=== PATIENT | female | born 1965 | race Caucasian/White ===

== ENCOUNTER 2016-09-10 07:31 | Emergency (ER) ==
[2016-09-10 08:03] LABS: #Basophils 0.1 thou/uL (0.0-0.2); #Eosinphils 0.1 thou/uL (0.0-0.7); #Lymphocytes 2.8 thou/uL (1.20-3.40); #Monocytes 0.7 thou/uL (0.11-0.59); #Neutrophils 5.7 thou/uL (1.40-6.50); %Basophils 0.9 % (0.0-1.0); %Eosinophils 1.1 % (0.0-10.0); %Lymphocytes 29.6 % (21.0-51.0); %Monocytes 7.6 % (0.0-10.0); %Neutrophils 60.8 % (42.0-75.0); Hemoglobin 15.9 g/dL (12.0-16.0); Mean Corpuscular HGB CONC 32.9 g/dL (32.0-36.0); Mean Corpuscular Hemoglobin 28.9 pg (27.0-31.0); Mean Corpuscular Volume 87.8 fl (81.0-99.0); Mean Platelet Volume 6.8 fL (7.4-10.4); Platelet Count 243 thou/uL (130-400); RBC Distribution Width 13.2 % (11.5-14.5); Red Blood Cell (RBC) Count 5.52 mill/uL (4.20-5.40); White Blood Cell (WBC) Count 9.4 thou/uL (4.8-10.8)
[2016-09-10 08:07] LABS: Bilirubin Negative (Negative); Blood, Urine Negative (Negative); Clarity Slightly Cloudy (Clear); Glucose, Urine (Dipstick) Negative (Negative); Leukocyte Negative (Negative); Nitrite Negative (Negative); Protein, Urine (Dipstick) Negative (Neg-Trace); Urobilinogen 0.2 mg/dL (0.2-1.0)
[2016-09-10 08:09] LABS: Pregnancy Test - Urine (BHCG) NEGATIVE (NEGATIVE); Pregu Control Bar Appear? YES (CONTROL BAR)
[2016-09-10 08:14] LABS: Amphetamine Not Detected (NotDetected); Barbiturates Screen Not Detected (NotDetected); Benzodiazepine Screen Not Detected (NotDetected); Cocaine Metabolite Screen Not Detected (NotDetected); Medtox Control Line Valid? VALID (VALID); Methadone Not Detected (NotDetected); Methamphetamine Not Detected (NotDetected); Opiate Screen Not Detected (NotDetected); Oxycodone Screen Not Detected (NotDetected); Phencyclidine (PCP) Not Detected (NotDetected); THC/Cannabinoid Screen Not Detected (NotDetected); Tricyclic Screen Not Detected (NotDetected)
[2016-09-10 08:17] LABS: Acetaminophen Less than 3.0 mcg/mL (10.0-30.0); Alcohol Less than 10 mg/dL (Less than 10); Salicylate Less than 5.0 mg/dL (15.0-30.0)
[2016-09-10 08:19] LABS: ALT (SGPT) 13 U/L (0-55); AST (SGOT) 16 U/L (5-34); Albumin 4.2 g/dL (3.5-5.0); Alcohol Less than 10 mg/dL (Less than 10); Alkaline Phosphatase 72 U/L (40-150); Anion Gap 13 mmol/L (10-20); BUN (Urea Nitrogen) 12 mg/dL (7.0-18.7); Bilirubin, Total 0.4 mg/dL (0.2-1.2); CK (CPK) 135 U/L (29-168); Calc. Creatinine Clearance 0 mL/min (70-130); Calcium 9.1 mg/dL (7.8-10.44); Carbon Dioxide 25 mmol/L (22-29); Chloride 105 mmol/L (98-107); Estimated GFR-MDRD 70; Globulin 2.9 g/dL (2.4-3.5); Glucose 113 mg/dL (70-105); Potassium 4.2 mmol/L (3.5-5.1); Protein, Total 7.1 g/dL (6.0-8.3); Sodium 139 mmol/L (136-145)
[2016-09-10] MEDS ORDERED: Lorazepam 0.5 MG TAB ONE (08:32)
[2016-09-10] MEDS ORDERED: Ibuprofen 800 MG TAB ONE (08:33)
[2016-09-10] MEDS ORDERED: Lisinopril 5 MG TAB ONE (09:52)
== END 2016-09-10 11:38 ==
LOC: BURERS 07:31
DX: F43.0 Acute stress reaction (principal); F32.9 Major depressive disorder, single episode, unspecified; I10 Essential (primary) hypertension; J45.909 Unspecified asthma, uncomplicated; F41.9 Anxiety disorder, unspecified; F20.9 Schizophrenia, unspecified; F17.210 Nicotine dependence, cigarettes, uncomplicated; Z79.2 Long term (current) use of antibiotics; Z79.899 Other long term (current) drug therapy
CPT/HCPCS: 36415; 80053; 80306; 80307; 81003; 81025; 82550; 85025; 99284

== ENCOUNTER 2016-09-18 18:57 | Emergency (ER) | payer OTHER ==
[2016-09-18] MEDS ORDERED: Ketorolac Tromethamine 60 MG/2 ML VIAL ONE (22:09)
[2016-09-18] MEDS ORDERED: cefTRIAXone\\ROCEPHIN 1 GM VIAL ONE (22:09)
[2016-09-18] MEDS ORDERED: Amoxicillin/Potassium Clav 875 MG TAB ONE (22:11)
[2016-09-18] MEDS ORDERED: Lidocaine 1% 20 ML MDV ONE (22:15)
== END 2016-09-18 22:48 | disposition home or self-care (01) ==
LOC: BURERS 18:57
DX: K04.7 Periapical abscess without sinus (principal); J45.909 Unspecified asthma, uncomplicated; I10 Essential (primary) hypertension; F41.9 Anxiety disorder, unspecified; F32.9 Major depressive disorder, single episode, unspecified; F20.9 Schizophrenia, unspecified; Z79.899 Other long term (current) drug therapy
CPT/HCPCS: 96372; J0696; J1885; J2001

== ENCOUNTER 2016-10-04 05:56 | Emergency (ER) | payer OTHER ==
[2016-10-04] MEDS ORDERED: ALPRAZolam 0.5 MG TAB ONE (06:03)
[2016-10-04 06:26] LABS: Bilirubin Negative (Negative); Blood, Urine Negative (Negative); Clarity Clear (Clear); Glucose, Urine (Dipstick) Negative (Negative); Leukocyte Negative (Negative); Nitrite Negative (Negative); Protein, Urine (Dipstick) Negative (Neg-Trace); Specific Gravity, Urine 1.015 (1.005-1.030); Urobilinogen 0.2 mg/dL (0.2-1.0)
== END 2016-10-04 07:41 | disposition home or self-care (01) ==
LOC: BURERS 05:56
DX: S00.81XA Abrasion of other part of head, initial encounter (principal); S40.812A Abrasion of left upper arm, initial encounter; S40.811A Abrasion of right upper arm, initial encounter; S00.01XA Abrasion of scalp, initial encounter; S80.812A Abrasion, left lower leg, initial encounter; S80.811A Abrasion, right lower leg, initial encounter; F41.9 Anxiety disorder, unspecified; E11.9 Type 2 diabetes mellitus without complications; I10 Essential (primary) hypertension; F31.9 Bipolar disorder, unspecified; F17.210 Nicotine dependence, cigarettes, uncomplicated; Z79.899 Other long term (current) drug therapy; Y04.2XXA Assault by strike against or bumped into by another person, initial encounter
CPT/HCPCS: 81003; 99283

== ENCOUNTER 2016-12-25 04:29 | Emergency (ER) | payer OTHER, SELFPAY ==
[2016-12-25] MEDS ORDERED: Ketorolac Tromethamine 30 MG/ML VIAL ONE (04:59)
[2016-12-25] MEDS ORDERED: Cyclobenzaprine 10 MG TAB ONE (04:59)
== END 2016-12-25 05:25 | disposition home or self-care (01) ==
LOC: BURERS 04:29
DX: M54.5 Low back pain (principal); R21 Rash and other nonspecific skin eruption; E11.9 Type 2 diabetes mellitus without complications; I10 Essential (primary) hypertension; F41.9 Anxiety disorder, unspecified; F31.9 Bipolar disorder, unspecified; F20.9 Schizophrenia, unspecified; F17.210 Nicotine dependence, cigarettes, uncomplicated; Z79.899 Other long term (current) drug therapy
CPT/HCPCS: 96372; J1885

== ENCOUNTER 2016-12-31 21:04 | Emergency (ER) | payer OTHER ==
[2016-12-31] MEDS ORDERED: Ibuprofen 800 MG TAB ONE (22:25)
[2016-12-31] MEDS ORDERED: cefTRIAXone\\ROCEPHIN 2 GM VIAL ONE (22:25)
[2016-12-31] MEDS ORDERED: Sodium Chloride 0.9% 100 ML ONE (22:25)
[2016-12-31 22:36] LABS: #Basophils 0.1 thou/uL (0.0-0.2); #Lymphocytes 1.8 thou/uL (1.20-3.40); #Neutrophils 8.8 thou/uL (1.40-6.50); %Basophils 1.1 % (0.0-1.0); %Eosinophils 0.2 % (0.0-10.0); %Lymphocytes 15.5 % (21.0-51.0); %Monocytes 8.6 % (0.0-10.0); %Neutrophils 74.7 % (42.0-75.0); Hemoglobin 11.1 g/dL (12.0-16.0); Mean Corpuscular Volume 88.2 fl (81.0-99.0); Platelet Count 138 thou/uL (130-400); RBC Distribution Width 12.8 % (11.5-14.5); Red Blood Cell (RBC) Count 3.71 mill/uL (4.20-5.40); White Blood Cell (WBC) Count 11.8 thou/uL (4.8-10.8)
[2016-12-31 22:48] LABS: ALT (SGPT) 7 U/L (8-55); AST (SGOT) 11 U/L (5-34); Albumin 2.8 g/dL (3.5-5.0); Alkaline Phosphatase 30 U/L (40-150); Anion Gap 10 mmol/L (10-20); BUN (Urea Nitrogen) 7 mg/dL (7.0-18.7); Bilirubin, Total 0.3 mg/dL (0.2-1.2); Calc. Creatinine Clearance 0 mL/min (70-130); Calcium 6.7 mg/dL (7.8-10.44); Carbon Dioxide 20 mmol/L (22-29); Chloride 108 mmol/L (98-107); Estimated GFR-MDRD Greater than 90; Globulin 2.3 g/dL (2.4-3.5); Glucose 82 mg/dL (70-105); Potassium 3.2 mmol/L (3.5-5.1); Protein, Total 5.1 g/dL (6.0-8.3); Sodium 135 mmol/L (136-145)
[2016-12-31] MEDS ORDERED: Albuterol Sulfate 1.25 MG/3 ML NEB ONE (22:48)
--- NOTE | 2016-12-31 22:53 | RAD ---
PORTABLE CHEST 12/31/16 The cardiac size is upper normal but still potentially within normal limits given an AP projection a nd the body habitus plus positioning. There is no vascular congestion, edema. Or pleural effusion. T he lungs are currently clear. The trachea is midline. IMPRESSION: Heart size is upper normal. No acute findings otherwise. POS: HOME
[2016-12-31 22:55] LABS: Bilirubin Negative (Negative); Blood, Urine Negative (Negative); Clarity Clear (Clear); Glucose, Urine (Dipstick) Negative (Negative); Leukocyte Negative (Negative); Nitrite Negative (Negative); Protein, Urine (Dipstick) Negative (Neg-Trace); Specific Gravity, Urine 1.015 (1.005-1.030); pH, Urine 7.5 (5.0-9.0)
[2016-12-31] MEDS ORDERED: methylPREDNISolone Sod Succ/PF 125 MG/2 ML VIAL ONE (23:18)
== END 2016-12-31 23:47 | disposition short-term general hospital (02) ==
LOC: BURERS 21:04
DX: J44.1 Chronic obstructive pulmonary disease with (acute) exacerbation (principal); J06.9 Acute upper respiratory infection, unspecified; E11.9 Type 2 diabetes mellitus without complications; I10 Essential (primary) hypertension; F41.9 Anxiety disorder, unspecified; F31.9 Bipolar disorder, unspecified; F20.9 Schizophrenia, unspecified; F17.210 Nicotine dependence, cigarettes, uncomplicated; Z79.899 Other long term (current) drug therapy
CPT/HCPCS: 36415; 51701; 71010; 80053; 81003; 83605; 85025; 87040; 87086; 93005; 94640; 96365; 96375; A4353; J0696; J2930; J7050; J7620

== ENCOUNTER 2018-09-06 13:36 | Emergency (ER) | payer OTHER ==
[2018-09-06] MEDS ORDERED: Ibuprofen 800 MG TAB ONE (13:54)
[2018-09-06] MEDS ORDERED: Cephalexin 500 MG CAP ONE (13:54)
== END 2018-09-06 14:01 | disposition home or self-care (01) ==
LOC: BURERS 13:36
DX: L01.00 Impetigo, unspecified (principal); E11.9 Type 2 diabetes mellitus without complications; I10 Essential (primary) hypertension; J44.9 Chronic obstructive pulmonary disease, unspecified; F41.9 Anxiety disorder, unspecified; F31.9 Bipolar disorder, unspecified; F20.9 Schizophrenia, unspecified; F17.210 Nicotine dependence, cigarettes, uncomplicated
CPT/HCPCS: 99283

== ENCOUNTER 2018-10-11 19:01 | Emergency (ER) | payer OTHER ==
[2018-10-11] MEDS ORDERED: Cephalexin 500 MG CAP ONE ×2 (19:10→19:11)
[2018-10-11] MEDS ORDERED: traMADol HCl 50 MG TAB ONE (19:11)
== END 2018-10-11 19:30 | disposition home or self-care (01) ==
LOC: BURERS 19:01
DX: L01.00 Impetigo, unspecified (principal); I10 Essential (primary) hypertension; E11.9 Type 2 diabetes mellitus without complications; J44.9 Chronic obstructive pulmonary disease, unspecified; F41.9 Anxiety disorder, unspecified; F31.9 Bipolar disorder, unspecified; F20.9 Schizophrenia, unspecified; F17.210 Nicotine dependence, cigarettes, uncomplicated
CPT/HCPCS: 99283

== ENCOUNTER 2018-12-09 13:38 | Emergency (ER) | payer OTHER ==
[2018-12-09] MEDS ORDERED: Sulfameth/Trimethoprim DS 800-160mg TAB ONE (14:41)
[2018-12-09] MEDS ORDERED: Acetaminophen 325 MG TAB ONE (14:41)
[2018-12-09] MEDS ORDERED: traMADol HCl 50 MG TAB ONE (14:41)
[2018-12-09 14:48] LABS: #Basophils 0.1 thou/uL (0.0-0.2); #Eosinphils 0.3 thou/uL (0.0-0.7); #Lymphocytes 2.7 thou/uL (1.20-3.40); #Monocytes 0.6 thou/uL (0.11-0.59); %Basophils 1.4 % (0.0-1.0); %Eosinophils 2.8 % (0.0-10.0); %Lymphocytes 28.1 % (21.0-51.0); %Monocytes 6.4 % (0.0-10.0); %Neutrophils 61.3 % (42.0-75.0); Mean Corpuscular HGB CONC 32.6 g/dL (32.0-36.0); Mean Corpuscular Hemoglobin 28.5 pg (27.0-31.0); Mean Corpuscular Volume 87.5 fL (78.0-98.0); Mean Platelet Volume 6.6 fL (7.4-10.4); Platelet Count 252 thou/uL (130-400); Red Blood Cell (RBC) Count 4.54 mill/uL (4.20-5.40); White Blood Cell (WBC) Count 9.7 thou/uL (4.8-10.8)
--- NOTE | 2018-12-09 17:48 | RAD ---
PA CHEST AND RIGHT RIBS: 7 Comparison is made with the 09/16/[address] [facility]. The heart is normal in size. The mediastinum shows no widening or shift. Small calcified node is seen in the aorticopulmonary window region. This is of no concern. The lungs are clear. There is no conge stive change or pleural effusion. There is no sign of pneumonia or pneumothorax. Regarding the right ribs, they are generally unremarkable. There was a little cortical irregularity i n the right 7th rib posteriorly a few centimeters to the right of the spine. I feel the odds of this being a recent fracture are low and would tend to disregard it unless the patient had tenderness in t his exact location on physical exam. IMPRESSION: No acute findings. See comments above regarding the right 7th rib posteriorly. Code T POS: HOME
== END 2018-12-09 14:57 | disposition home or self-care (01) ==
LOC: BURERS 13:38
DX: L08.9 Local infection of the skin and subcutaneous tissue, unspecified (principal); F31.9 Bipolar disorder, unspecified; I10 Essential (primary) hypertension; E11.9 Type 2 diabetes mellitus without complications; J44.9 Chronic obstructive pulmonary disease, unspecified; F20.9 Schizophrenia, unspecified
CPT/HCPCS: 85025

== ENCOUNTER 2019-01-26 22:55 | Emergency (ER) | payer OTHER ==
[2019-01-26 23:18] LABS: Bilirubin Negative (Negative); Blood, Urine Negative (Negative); Clarity Clear (Clear); Glucose, Urine (Dipstick) Negative (Negative); Leukocyte Negative (Negative); Nitrite Negative (Negative); Protein, Urine (Dipstick) Negative (Neg-Trace); Urobilinogen 0.2 mg/dL (Less than 2)
[2019-01-26] MEDS ORDERED: traMADol HCl 50 MG TAB ONE (23:18)
[2019-01-26] MEDS ORDERED: Ketorolac Tromethamine 30 MG/ML VIAL ONE (23:18)
[2019-01-26 23:50] LABS: Hemoglobin 13.1 g/dL (12.0-16.0); Mean Corpuscular HGB CONC 32.4 g/dL (32.0-36.0); Mean Corpuscular Hemoglobin 28.3 pg (27.0-31.0); Mean Corpuscular Volume 87.4 fL (78.0-98.0); Mean Platelet Volume 6.5 fL (7.4-10.4); Platelet Count 238 thou/uL (130-400); RBC Distribution Width 13.2 % (11.5-14.5); Red Blood Cell (RBC) Count 4.62 mill/uL (4.20-5.40); White Blood Cell (WBC) Count 8.2 thou/uL (4.8-10.8)
[2019-01-26 23:57] LABS: ALT (SGPT) 9 U/L (8-55); AST (SGOT) 16 U/L (5-34); Alkaline Phosphatase 46 U/L (40-150); Anion Gap 13 mmol/L (10-20); BUN (Urea Nitrogen) 16 mg/dL (9.8-20.1); Bilirubin, Total 0.2 mg/dL (0.2-1.2); Calc. Creatinine Clearance 0 mL/min (70-130); Calcium 9.4 mg/dL (7.8-10.44); Carbon Dioxide 26 mmol/L (22-29); Chloride 104 mmol/L (98-107); Estimated GFR-MDRD 57; Globulin 2.8 g/dL (2.4-3.5); Glucose 98 mg/dL (70-105); Lipase 36 U/L (8-78); Potassium 4.5 mmol/L (3.5-5.1); Protein, Total 6.8 g/dL (6.0-8.3); Sodium 138 mmol/L (136-145)
[2019-01-27 00:03] LABS: Band 1 % (5-11); Eosinophils 1 % (0-10); Lymphocytes 47 % (21-51); MDiff Complete? YES; Monocytes 5 % (0-10); Neutrophil 45 % (42-75); Platelet Morphology Comment Appears Adequate; RBC Morphology Normal; Reactive Lymphocytes 1 % (0-10)
== END 2019-01-27 00:14 | disposition home or self-care (01) ==
LOC: BURERS 22:55
DX: G89.29 Other chronic pain (principal); R10.10 Upper abdominal pain, unspecified; M54.9 Dorsalgia, unspecified; E11.9 Type 2 diabetes mellitus without complications; I10 Essential (primary) hypertension; J44.9 Chronic obstructive pulmonary disease, unspecified; F41.9 Anxiety disorder, unspecified; F31.9 Bipolar disorder, unspecified; F20.9 Schizophrenia, unspecified; F17.210 Nicotine dependence, cigarettes, uncomplicated; Z79.899 Other long term (current) drug therapy
CPT/HCPCS: 80053; 81003; 83690; 85025; 96374; J1885

== ENCOUNTER 2019-05-16 15:34 | Emergency (ER) | payer OTHER ==
[2019-05-16] MEDS ORDERED: Ibuprofen 800 MG TAB ONE (17:47)
--- NOTE | 2019-05-16 17:59 | RAD ---
CHEST TWO VIEWS: 05/16/19 Comparison is made with a 12/09/18 study. The heart is normal in size and the lungs are clear. No acute infiltrate or effusion was seen. The me diastinum was unremarkable. IMPRESSION: No acute findings. POS: HOME
[2019-05-16] MEDS ORDERED: Oseltamivir 75 MG CAP ONE (18:24)
== END 2019-05-16 18:37 | disposition home or self-care (01) ==
LOC: BURERS 15:34
DX: J11.1 Influenza due to unidentified influenza virus with other respiratory manifestations (principal); Z71.6 Tobacco abuse counseling; E11.9 Type 2 diabetes mellitus without complications; I10 Essential (primary) hypertension; J44.9 Chronic obstructive pulmonary disease, unspecified; F41.9 Anxiety disorder, unspecified; F31.9 Bipolar disorder, unspecified; F20.9 Schizophrenia, unspecified; F17.210 Nicotine dependence, cigarettes, uncomplicated
CPT/HCPCS: 71046; 87804; J7620

== ENCOUNTER 2019-06-05 05:33 | Emergency (ER) | payer OTHER ==
[2019-06-05 05:50] LABS: #Basophils 0.1 thou/uL (0.0-0.2); #Eosinphils 0.1 thou/uL (0.0-0.7); #Lymphocytes 2.3 thou/uL (1.20-3.40); #Monocytes 0.8 thou/uL (0.11-0.59); #Neutrophils 5.3 thou/uL (1.40-6.50); %Basophils 1.5 % (0.0-1.0); %Eosinophils 1.2 % (0.0-10.0); %Lymphocytes 26.6 % (21.0-51.0); %Monocytes 9.3 % (0.0-10.0); %Neutrophils 61.5 % (42.0-75.0); Hemoglobin 12.8 g/dL (12.0-16.0); Mean Corpuscular HGB CONC 31.7 g/dL (32.0-36.0); Mean Corpuscular Hemoglobin 27.8 pg (27.0-31.0); Mean Corpuscular Volume 87.7 fL (78.0-98.0); Mean Platelet Volume 7.4 fL (7.4-10.4); Platelet Count 263 thou/uL (130-400); RBC Distribution Width 13.3 % (11.5-14.5); Red Blood Cell (RBC) Count 4.61 mill/uL (4.20-5.40); White Blood Cell (WBC) Count 8.6 thou/uL (4.8-10.8)
[2019-06-05 05:52] LABS: MDiff Complete? YES; Manual Diff?? NO
[2019-06-05] MEDS ORDERED: Ketorolac Tromethamine 30 MG/ML VIAL ONE (05:59)
[2019-06-05 06:00] LABS: Bilirubin Negative (Negative); Blood, Urine Negative (Negative); Clarity Clear (Clear); Glucose, Urine (Dipstick) Negative (Negative); Leukocyte Negative (Negative); Nitrite Negative (Negative); Protein, Urine (Dipstick) Negative (Neg-Trace)
[2019-06-05 06:03] LABS: ALT (SGPT) 15 U/L (8-55); AST (SGOT) 14 U/L (5-34); Albumin 3.7 g/dL (3.5-5.0); Alcohol Less than 10 mg/dL (Less than 10); Alkaline Phosphatase 44 U/L (40-110); Anion Gap 12 mmol/L (10-20); BUN (Urea Nitrogen) 10 mg/dL (9.8-20.1); Bilirubin, Total 0.2 mg/dL (0.2-1.2); Calc. Creatinine Clearance 0 mL/min (70-130); Calcium 8.9 mg/dL (7.8-10.44); Carbon Dioxide 29 mmol/L (22-29); Chloride 97 mmol/L (98-107); Estimated GFR-MDRD 83; Glucose 100 mg/dL (70-105); Lipase 30 U/L (8-78); Potassium 4.3 mmol/L (3.5-5.1); Protein, Total 6.7 g/dL (6.0-8.3); Sodium 134 mmol/L (136-145)
[2019-06-05] MEDS ORDERED: Iopamidol 370 76% 100 ML VIAL ONE (09:51)
--- NOTE | 2019-06-05 17:39 | CT ---
CT ABDOMEN AND PELVIS WITH CONTRAST: 06/05/[address] of the abdomen and pelvis was performed for evaluation of abdominal pain, mainly left sided . The lung bases are clear. The liver, spleen and pancreas were unremarkable in appearance. A large gal lstone is present in the gallbladder and is visible on an older CT scan dated 05/03/18. Additionally, there is a 1.5 cm lucency in the left kidney that appears to be a cyst. It was present before and has changed little. There is no sign of solid renal mass or hydronephrosis. The bowel shows no dilation , wall thickening, or inflammatory changes around it. CT of the pelvis showed no pelvic masses, fluid collections, or inflammatory changes. There is some m ild uniform thickening of the urinary bladder wall. This could be nearly because it is not completely distended. Alternatively mild cystitis might be entertained with the appropriate symptoms. Multilevel degenerative change is present throughout the spine which is quite severe with multilevel spinal stenosis. There is a severe anterior compression of the T11 vertebral body which is longstandi ng and was present on the prior scan. There is also a mild compression of the L1 vertebral body. IMPRESSION: 1. Large gallstone, longstanding. No signs of acute abdominal change to explain the patient's pa in. 2. 1.5 cm lucency in the left kidney, unchanged from 2018. Statistically, most likely a cyst. 3. Longstanding severe compression fracture of T11. Mild compression fracture of L1. 4. Multilevel degenerative changes of the spine with multilevel spinal stenosis. 5. Equivocal mild wall thickening in the urinary bladder, which may or may not be significant. POS: HOME
== END 2019-06-05 07:04 | disposition home or self-care (01) ==
LOC: BURERS 05:33
DX: R10.32 Left lower quadrant pain (principal); E11.9 Type 2 diabetes mellitus without complications; I10 Essential (primary) hypertension; J44.9 Chronic obstructive pulmonary disease, unspecified; F41.9 Anxiety disorder, unspecified; F20.9 Schizophrenia, unspecified; F31.9 Bipolar disorder, unspecified; F17.210 Nicotine dependence, cigarettes, uncomplicated; Z79.899 Other long term (current) drug therapy; Z79.51 Long term (current) use of inhaled steroids
CPT/HCPCS: 74177; 80053; 80307; 81003; 83690; 85025; 96361; 96374; J1885; Q9967

== ENCOUNTER 2019-07-03 23:02 | Emergency (ER) | payer OTHER ==
[2019-07-03] MEDS ORDERED: HYDROcodone/Acetaminophen 10/325 mg Tablet ONE (23:18)
[2019-07-03] MEDS ORDERED: Ibuprofen 800 MG TAB ONE (23:19)
[2019-07-03] MEDS ORDERED: Clindamycin 150 MG CAP ONE (23:19)
[2019-07-03] MEDS ORDERED: Ondansetron ODT 4 MG TAB ONE (23:19)
== END 2019-07-03 23:20 | disposition home or self-care (01) ==
LOC: BURERS 23:02
DX: L02.31 Cutaneous abscess of buttock (principal); L03.317 Cellulitis of buttock; L03.311 Cellulitis of abdominal wall; E11.9 Type 2 diabetes mellitus without complications; I10 Essential (primary) hypertension; J44.9 Chronic obstructive pulmonary disease, unspecified; F41.9 Anxiety disorder, unspecified; F31.9 Bipolar disorder, unspecified; F20.9 Schizophrenia, unspecified; F17.210 Nicotine dependence, cigarettes, uncomplicated
CPT/HCPCS: 99283; Q0162

== ENCOUNTER 2019-09-25 18:09 | Emergency (ER) | payer OTHER ==
[2019-09-25 19:04] LABS: #Basophils 0.1 thou/uL (0.0-0.2); #Eosinphils 0.1 thou/uL (0.0-0.7); #Lymphocytes 3.3 thou/uL (1.20-3.40); #Monocytes 0.8 thou/uL (0.11-0.59); %Basophils 1.4 % (0.0-1.0); %Eosinophils 1.4 % (0.0-10.0); %Lymphocytes 34.9 % (21.0-51.0); %Monocytes 8.4 % (0.0-10.0); %Neutrophils 53.9 % (42.0-75.0); Hemoglobin 13.5 g/dL (12.0-16.0); Mean Corpuscular HGB CONC 32.5 g/dL (32.0-36.0); Mean Corpuscular Hemoglobin 27.9 pg (27.0-31.0); Platelet Count 256 thou/uL (130-400); RBC Distribution Width 13.9 % (11.5-14.5); Red Blood Cell (RBC) Count 4.82 mill/uL (4.20-5.40); White Blood Cell (WBC) Count 9.3 thou/uL (4.8-10.8)
[2019-09-25] MEDS ORDERED: cefTRIAXone\\ROCEPHIN 1 GM VIAL ONE (19:10)
[2019-09-25 19:12] LABS: ALT (SGPT) 7 U/L (8-55); AST (SGOT) 11 U/L (5-34); Albumin 3.8 g/dL (3.5-5.0); Alkaline Phosphatase 60 U/L (40-110); Anion Gap 15 mmol/L (10-20); BUN (Urea Nitrogen) 24 mg/dL (9.8-20.1); Bilirubin, Total 0.2 mg/dL (0.2-1.2); Calc. Creatinine Clearance 0 mL/min (70-130); Calcium 8.7 mg/dL (7.8-10.44); Carbon Dioxide 24 mmol/L (22-29); Chloride 101 mmol/L (98-107); Estimated GFR-MDRD 49; Globulin 2.9 g/dL (2.4-3.5); Glucose 115 mg/dL (70-105); Potassium 4.1 mmol/L (3.5-5.1); Protein, Total 6.7 g/dL (6.0-8.3); Sodium 136 mmol/L (136-145)
--- NOTE | 2019-09-25 19:25 | RAD ---
ONE VIEW CHEST: 09/25/19 HISTORY: Hypotension and fever. COMPARISON: 09/16/18. FINDINGS: The cardiac silhouette and pulmonary vasculature are within normal limits. The lungs remain clear. Ca lcified granuloma again overlies the left suprahilar location. There has been no interval change from the prior exam. IMPRESSION: No acute cardiopulmonary process. POS: [facility]
[2019-09-25] MEDS ORDERED: Lidocaine 1% PF 5 ML VIAL ONE (19:42)
[2019-09-25 19:52] LABS: Bilirubin Negative (Negative); Blood, Urine Negative (Negative); Clarity Cloudy (Clear); Glucose, Urine (Dipstick) Negative (Negative); Leukocyte Small (Negative); Nitrite Positive (Negative); Protein, Urine (Dipstick) Negative (Neg-Trace); Urobilinogen 0.2 mg/dL (Less than 2)
[2019-09-25 19:56] LABS: RBC/HPF 0-3 HPF (0-3)
[2019-09-25 19:57] LABS: Bacteria/HPF 3+ HPF (None Seen); Squamous Epithelial 0-3 HPF (0-3)
[2019-09-26 10:11] LABS: SARS-CoV-2 MS2 Positive; SARS-CoV-2 N Gene Negative; SARS-CoV-2 S Gene Negative; SARS-CoV-2 orf1ab Negative
== END 2019-09-25 21:15 | disposition short-term general hospital (02) ==
LOC: BURERS 18:09
DX: N10 Acute pyelonephritis (principal); J44.1 Chronic obstructive pulmonary disease with (acute) exacerbation; E11.9 Type 2 diabetes mellitus without complications; I10 Essential (primary) hypertension; F31.9 Bipolar disorder, unspecified; F41.9 Anxiety disorder, unspecified; F20.9 Schizophrenia, unspecified; F17.210 Nicotine dependence, cigarettes, uncomplicated; Z79.899 Other long term (current) drug therapy; Z20.828 Contact with and (suspected) exposure to other viral communicable diseases
CPT/HCPCS: 10060; 51701; 71045; 80053; 81003; 81015; 83605; 85025; 86140; 87040; 87633; 87635; 87798; 87804; 93005; 94760; 96361; 96374; J0696; J2001; U0002

== ENCOUNTER 2019-09-30 00:10 | Emergency (ER) | payer OTHER ==
[2019-09-30] MEDS ORDERED: cefTRIAXone\\ROCEPHIN 1 GM VIAL ONE (00:27)
[2019-09-30] MEDS ORDERED: Azithromycin 250 MG TAB ONE ×2 (00:27→00:37)
== END 2019-09-30 00:30 | disposition home or self-care (01) ==
LOC: BURERS 00:10
DX: L02.211 Cutaneous abscess of abdominal wall (principal); N39.0 Urinary tract infection, site not specified; E11.9 Type 2 diabetes mellitus without complications; I10 Essential (primary) hypertension; J44.9 Chronic obstructive pulmonary disease, unspecified; F31.9 Bipolar disorder, unspecified; F41.9 Anxiety disorder, unspecified; F20.9 Schizophrenia, unspecified; F17.210 Nicotine dependence, cigarettes, uncomplicated; Z79.899 Other long term (current) drug therapy; Z91.14 Patient's other noncompliance with medication regimen
CPT/HCPCS: 96372; 99281; J0696

== ENCOUNTER 2019-10-16 10:56 | Emergency (ER) | payer OTHER ==
[2019-10-16 11:50] LABS: #Basophils 0.1 thou/uL (0.0-0.2); #Eosinphils 0.1 thou/uL (0.0-0.7); #Lymphocytes 2.7 thou/uL (1.20-3.40); #Monocytes 0.4 thou/uL (0.11-0.59); #Neutrophils 4.9 thou/uL (1.40-6.50); %Basophils 1.4 % (0.0-1.0); %Eosinophils 1.5 % (0.0-10.0); %Lymphocytes 32.5 % (21.0-51.0); %Monocytes 5.3 % (0.0-10.0); %Neutrophils 59.4 % (42.0-75.0); Hemoglobin 12.8 g/dL (12.0-16.0); Mean Corpuscular HGB CONC 31.7 g/dL (32.0-36.0); Mean Corpuscular Hemoglobin 27.6 pg (27.0-31.0); Mean Corpuscular Volume 87.2 fL (78.0-98.0); Mean Platelet Volume 7.4 fL (7.4-10.4); Platelet Count 275 thou/uL (130-400); RBC Distribution Width 14.2 % (11.5-14.5); Red Blood Cell (RBC) Count 4.62 mill/uL (4.20-5.40); White Blood Cell (WBC) Count 8.3 thou/uL (4.8-10.8)
[2019-10-16 12:01] LABS: ALT (SGPT) Less than 7 U/L (8-55); AST (SGOT) 13 U/L (5-34); Albumin 4.1 g/dL (3.5-5.0); Alkaline Phosphatase 55 U/L (40-110); Anion Gap 15 mmol/L (10-20); BUN (Urea Nitrogen) 16 mg/dL (9.8-20.1); Bilirubin, Total 0.3 mg/dL (0.2-1.2); Calc. Creatinine Clearance 0 mL/min (70-130); Carbon Dioxide 24 mmol/L (22-29); Chloride 95 mmol/L (98-107); Estimated GFR-MDRD 72; Globulin 2.9 g/dL (2.4-3.5); Glucose 130 mg/dL (70-105); Lipase 39 U/L (8-78); Potassium 4.3 mmol/L (3.5-5.1); Sodium 130 mmol/L (136-145)
[2019-10-16] MEDS ORDERED: Escitalopram Oxalate 20 mg Tablet PO SCH (12:30)
[2019-10-16] MEDS ORDERED: Gabapentin 300 MG CAP PO SCH (12:30)
--- NOTE | 2019-10-16 14:00 | RAD ---
PORTABLE CHEST: 10/16/19 An AP portable film at 1204 is compared with a 09/25/19 study. The heart is normal in size and the lungs are clear. No infiltrate or effusion was seen. There is no vascular congestion or edema. The mediastinum is unremarkable. IMPRESSION: No acute thoracic findings. POS: HOME
== END 2019-10-16 13:35 | disposition home or self-care (01) ==
LOC: BURERS 10:56
DX: R07.89 Other chest pain (principal); G89.29 Other chronic pain; M54.9 Dorsalgia, unspecified; F42.4 Excoriation (skin-picking) disorder; J45.909 Unspecified asthma, uncomplicated; I10 Essential (primary) hypertension; F31.9 Bipolar disorder, unspecified; F32.9 Major depressive disorder, single episode, unspecified; F17.210 Nicotine dependence, cigarettes, uncomplicated; Z79.899 Other long term (current) drug therapy
CPT/HCPCS: 36415; 71045; 80053; 83690; 84484; 85025; 93005

== ENCOUNTER → 2019-12-19 | Emergency (ER) | payer OTHER ==
[~2019-12-19] MED LIST: Ketorolac Tromethamine 30 MG/ML VIAL ONE; Ondansetron ODT 4 MG TAB ONE; Sulfameth/Trimethoprim DS 800-160mg TAB ONE
[2019-12-19 16:53] LABS: #Basophils 0.1 thou/uL (0.0-0.2); #Eosinphils 0.1 thou/uL (0.0-0.7); #Lymphocytes 2.1 thou/uL (1.20-3.40); #Monocytes 1.1 thou/uL (0.11-0.59); #Neutrophils 6.9 thou/uL (1.40-6.50); %Basophils 1.3 % (0.0-1.0); %Eosinophils 0.9 % (0.0-10.0); %Lymphocytes 20.5 % (21.0-51.0); %Monocytes 10.3 % (0.0-10.0); Hemoglobin 13.1 g/dL (12.0-16.0); Mean Corpuscular HGB CONC 31.3 g/dL (32.0-36.0); Mean Corpuscular Hemoglobin 27.8 pg (27.0-31.0); Mean Corpuscular Volume 88.7 fL (78.0-98.0); Platelet Count 307 thou/uL (130-400); RBC Distribution Width 12.5 % (11.5-14.5); Red Blood Cell (RBC) Count 4.71 mill/uL (4.20-5.40); White Blood Cell (WBC) Count 10.3 thou/uL (4.8-10.8)
[2019-12-19 17:09] LABS: ALT (SGPT) 32 U/L (8-55); AST (SGOT) 38 U/L (5-34); Albumin 3.8 g/dL (3.5-5.0); Alkaline Phosphatase 65 U/L (40-110); Anion Gap 14 mmol/L (10-20); BUN (Urea Nitrogen) 14 mg/dL (9.8-20.1); Bilirubin, Total 0.2 mg/dL (0.2-1.2); Calc. Creatinine Clearance 0 mL/min (70-130); Calcium 8.9 mg/dL (7.8-10.44); Carbon Dioxide 27 mmol/L (22-29); Chloride 95 mmol/L (98-107); Estimated GFR-MDRD 39; Globulin 3.6 g/dL (2.4-3.5); Glucose 105 mg/dL (70-105); Lipase 34 U/L (8-78); Protein, Total 7.4 g/dL (6.0-8.3); Sodium 133 mmol/L (136-145)
[2019-12-19 17:48] LABS: Bilirubin Small (Negative); Blood, Urine Moderate (Negative); Clarity Turbid (Clear); Glucose, Urine (Dipstick) Negative (Negative); Ketone, Urine Trace mg/dL (Negative); Leukocyte Small (Negative); Nitrite Negative (Negative); Protein, Urine (Dipstick) 100 mg/dL (Neg-Trace); pH, Urine 5.5 (5.0-9.0)
[2019-12-19 17:54] LABS: Bacteria/HPF 3+ HPF (None Seen); RBC/HPF 0-3 HPF (0-3); WBC/HPF 21-50 HPF (0-3)
[2019-12-19 17:57] LABS: Amphetamine Not Detected (NotDetected); Barbiturates Screen Not Detected (NotDetected); Benzodiazepine Screen Not Detected (NotDetected); Cocaine Metabolite Screen Not Detected (NotDetected); Medtox Control Line Valid? VALID (VALID); Methadone Not Detected (NotDetected); Methamphetamine Not Detected (NotDetected); Opiate Screen Not Detected (NotDetected); Oxycodone Screen Not Detected (NotDetected); Phencyclidine (PCP) Not Detected (NotDetected); THC/Cannabinoid Screen Not Detected (NotDetected); Tricyclic Screen Not Detected (NotDetected)
== END ==
LOC: BURERS 16:20
DX: N39.0 Urinary tract infection, site not specified (principal); G89.29 Other chronic pain; M54.5 Low back pain; R11.2 Nausea with vomiting, unspecified; E11.9 Type 2 diabetes mellitus without complications; I10 Essential (primary) hypertension; J44.9 Chronic obstructive pulmonary disease, unspecified; F31.9 Bipolar disorder, unspecified; F41.9 Anxiety disorder, unspecified; F20.9 Schizophrenia, unspecified; F17.210 Nicotine dependence, cigarettes, uncomplicated
CPT/HCPCS: 36415; 80053; 80306; 81003; 81015; 83690; 85025; 96372; 99284; J1885; Q0162

== ENCOUNTER 2019-12-25 09:45 | Observation (INO) | payer OTHER ==
[2019-12-25 10:36] LABS: #Basophils 0.1 thou/uL (0.0-0.2); #Eosinphils 0.1 thou/uL (0.0-0.7); #Lymphocytes 1.6 thou/uL (1.20-3.40); #Monocytes 0.3 thou/uL (0.11-0.59); %Basophils 0.7 % (0.0-1.0); %Eosinophils 0.6 % (0.0-10.0); %Lymphocytes 19.7 % (21.0-51.0); %Monocytes 4.2 % (0.0-10.0); %Neutrophils 74.8 % (42.0-75.0); Hemoglobin 12.5 g/dL (12.0-16.0); Mean Corpuscular HGB CONC 32.3 g/dL (32.0-36.0); Mean Corpuscular Hemoglobin 28.1 pg (27.0-31.0); Mean Platelet Volume 6.6 fL (7.4-10.4); Platelet Count 470 thou/uL (130-400); RBC Distribution Width 12.4 % (11.5-14.5); Red Blood Cell (RBC) Count 4.46 mill/uL (4.20-5.40); White Blood Cell (WBC) Count 8.1 thou/uL (4.8-10.8)
[2019-12-25 10:42] LABS: INR-International Normal Ratio 1.1; Prothrombin Time 14.1 sec (12.0-14.7)
[2019-12-25 11:00] LABS: Bilirubin Small (Negative); Blood, Urine Trace (Negative); Clarity Cloudy (Clear); Glucose, Urine (Dipstick) Negative (Negative); Ketone, Urine Negative (Negative); Leukocyte Small (Negative); Nitrite Negative (Negative); Protein, Urine (Dipstick) Negative (Neg-Trace); Urobilinogen 0.2 mg/dL (Less than 2)
[2019-12-25 11:07] LABS: Amphetamine Not Detected (NotDetected); Barbiturates Screen Not Detected (NotDetected); Benzodiazepine Screen Not Detected (NotDetected); Cocaine Metabolite Screen Not Detected (NotDetected); Medtox Control Line Valid? VALID (VALID); Methadone Not Detected (NotDetected); Methamphetamine Not Detected (NotDetected); Opiate Screen Not Detected (NotDetected); Oxycodone Screen Not Detected (NotDetected); Phencyclidine (PCP) Not Detected (NotDetected); THC/Cannabinoid Screen Not Detected (NotDetected); Tricyclic Screen Not Detected (NotDetected)
[2019-12-25 11:13] LABS: Bacteria/HPF 3+ HPF (None Seen); Mucous/LPF 1+ LPF (<2+)
[2019-12-25 11:27] LABS: ALT (SGPT) 51 U/L (8-55); AST (SGOT) 84 U/L (5-34); Acetaminophen Less than 6.0 mcg/mL (10.0-30.0); Albumin 3.7 g/dL (3.5-5.0); Alcohol Less than 10 mg/dL (Less than 10); Alkaline Phosphatase 53 U/L (40-110); Anion Gap 17 mmol/L (10-20); BUN (Urea Nitrogen) 15 mg/dL (9.8-20.1); Bilirubin, Total 0.2 mg/dL (0.2-1.2); Calc. Creatinine Clearance 0 mL/min (70-130); Calcium 8.9 mg/dL (7.8-10.44); Carbon Dioxide 19 mmol/L (22-29); Chloride 96 mmol/L (98-107); Estimated GFR-MDRD 30; Globulin 3.3 g/dL (2.4-3.5); Glucose 78 mg/dL (70-105); Potassium 3.4 mmol/L (3.5-5.1); Salicylate Less than 8.0 mg/dL (15.0-30.0); Sodium 129 mmol/L (136-145)
[2019-12-25] MEDS ORDERED: Morphine 4 MG/ML VIAL ONE (12:07)
[2019-12-25 15:35] LABS: Anion Gap 17 mmol/L (10-20); BUN (Urea Nitrogen) 14 mg/dL (9.8-20.1); Calc. Creatinine Clearance 0 mL/min (70-130); Carbon Dioxide 22 mmol/L (22-29); Chloride 97 mmol/L (98-107); Estimated GFR-MDRD 34; Glucose 115 mg/dL (70-105); Potassium 4.1 mmol/L (3.5-5.1); Sodium 132 mmol/L (136-145)
[2019-12-25] MEDS ORDERED: Ondansetron PF 4 MG/2 ML Vial IVP PRN (15:57)
[2019-12-25] MEDS ORDERED: Ondansetron ODT 4 MG TAB PO PRN (15:57)
[2019-12-25 15:59] VITALS: BMI 35.9
[2019-12-25] MEDS: Morphine 4 MG/ML VIAL SLOW IVP PRN ×2 (16:21→20:27)
[2019-12-25 17:30] LABS: Anion Gap 15 mmol/L (10-20); BUN (Urea Nitrogen) 13 mg/dL (9.8-20.1); Calc. Creatinine Clearance 81 mL/min (70-130); Calcium 8.6 mg/dL (7.8-10.44); Carbon Dioxide 22 mmol/L (22-29); Chloride 98 mmol/L (98-107); Estimated GFR-MDRD 36; Glucose 136 mg/dL (70-105); Potassium 3.5 mmol/L (3.5-5.1); Sodium 131 mmol/L (136-145)
--- NOTE | 2019-12-25 18:27 | CT ---
CT CERVICAL SPINE: 12/25/[address] of the cervical spine was performed. There is loss of the normal cervical lordosis which ma y be due to muscle spasm. No fracture, dislocation, or acute traumatic change was appreciated otherwi se. There is no sign of foraminal or central canal stenosis. There may be some very minor central bul ging of the C4-C5 and C5-C6 discs. This does not appear to cause significant impingement. The soft ti ssues are normal in thickness and the C1-2 dens distance is normal. IMPRESSION: Straightening of the cervical spine. Exam otherwise showed no acute findings. Preliminary report discussed with Dr. yL at 12:10 on 12/25/19. POS: HOME
--- NOTE | 2019-12-25 18:30 | CT ---
CT OF THE BRAIN WITHOUT CONTRAST: 12/25/[address] was done following trauma. The ventricles are normal in size with no shift. The sept um pellucidum is asymmetric, a common anatomical finding. No intracranial bleeding or extra-axial hem atoma was seen. A small hyperdensity just above the left orbit on slice 13 is felt to be due to volum e averaging. There was no sign of mass, edema, or stroke. The skull appears intact. The visible paran cm sinuses are clear. There is probably a small subcentimeter polyp in the medial wall of the left maxillary sinus. The mastoid air cells are clear. IMPRESSION: No acute intracranial findings. Preliminary report discussed with Dr. Ly at 12:10 on 12/25/19. POS: HOME
--- NOTE | 2019-12-25 18:49 | CT ---
CT OF THE CHEST, ABDOMEN AND PELVIS WITHOUT CONTRAST: 12/24/[address] of the chest, abdomen and pelvis was done following trauma. Comparison is made with a prior abdominal CT of 06/05/[address] angio of the chest of 09/16/18. IV contrast was not used due to the patient's GFR. CT OF THE THORAX: The lungs are clear with no infiltrate, signs of contusion, pneumothorax or pleural effusion. The med iastinum showed no sign of mass or hematoma. Arterial calcifications in the aorta and coronary arteri es are relatively minor. Several old rib fractures are seen in this patient on both the mid right rib s and upper left ribs. These can be seen on prior exams. The sternum appears intact. The upper thorac ic vertebrae appears normal. There is a severe compression of the T11 vertebral body with some retrop ulsion of it, but this is a longstanding finding. It does not appear to be much different than before . The noncontrast CT of the abdomen shows all major organs to be intact with in the limitations of a no ncontrast study. The liver, spleen, pancreas, adrenal glands, and kidneys showed no sign of laceratio n, hematoma, mass or other worrisome findings. A large calcified gallstones is present in the gallbla dder as on prior scans. CT of the pelvis showed no pelvic masses, or fluid collections. There was no sign of hematoma. The sagittal view again demonstrates the severe compression fracture of T11. There is a prominent com pression fracture of L1 which is not new. Its appearance today is similar to the prior study. Previou sly, L4 perhaps showed the very beginnings of some compression, but it has advanced further now with the loss of height anteriorly by about 40%. Additionally, L3 was not compressed at all before but now is compressed by about 40-50%. Degenerative discs are present at lumbar levels. The L3 and L4 findin gs appear more likely subacute than recent. If there was particular pain here, an MRI could be done e lectively to better assess the age of the findings. There is spinal stenosis at the L4-L5 level in pa rticular and overall the spinal canal is somewhat small in the lumbar region. The bony pelvis appears intact, as do the hips. IMPRESSION: 1. Old rib fractures but nothing definitely acute seen in the chest. Left upper rib fractures se em a little sharper, but I can also see this on the prior CT. 2. Abdominal organs all appear intact with no sign of acute injury. 3. Severe compression of T11, unchanged from prior scans. L1 compression unchanged from prior sc an. 4. Compressions of L3 and L4 which are probably subacute in nature. The L3 compression was not p resent in May, though the L4 vertebra probably had the beginnings of a slight compression. Preliminary findings discussed with Dr. Ly at 12:10 on 12/25/19. POS: HOME
[2019-12-25] MEDS: Sodium Chloride 0.9% 1,000 ML IV SCH (19:34)
[2019-12-26] MEDS: Morphine 4 MG/ML VIAL SLOW IVP PRN (04:12)
[2019-12-26] MEDS: Sodium Chloride 0.9% 1,000 ML IV SCH (04:17)
[2019-12-26 05:16] LABS: Anion Gap 16 mmol/L (10-20); BUN (Urea Nitrogen) 10 mg/dL (9.8-20.1); Calc. Creatinine Clearance 112 mL/min (70-130); Calcium 8.3 mg/dL (7.8-10.44); Carbon Dioxide 18 mmol/L (22-29); Chloride 101 mmol/L (98-107); Estimated GFR-MDRD 53; Glucose 125 mg/dL (70-105); Potassium 3.1 mmol/L (3.5-5.1); Sodium 132 mmol/L (136-145)
[2019-12-26] MEDS ORDERED: Cephalexin 250 MG CAP PO SCH (09:00)
[2019-12-26 11:44] VITALS: BP 136/67; TEMP 97.9
[2019-12-26 11:48] LABS: SARS-CoV-2 MS2 Positive; SARS-CoV-2 N Gene Negative; SARS-CoV-2 S Gene Negative; SARS-CoV-2 by NAA Not Detected (NotDetected); SARS-CoV-2 orf1ab Negative
--- NOTE | 2019-12-30 06:27 | SS ---
DATE OF ADMISSION: 12/25/2019 DATE OF DISCHARGE: 12/26/2019 Late observation history, physical, and discharge. CHIEF COMPLAINT: Fall. HISTORY OF PRESENT ILLNESS: Ms. Rahul Contreras is a 54-year-old female who presented to the emergency department yesterday morning with complaint of a fall in the shower, per ED physician, she complained of back and rib pain after the fall that was sharp in nature and moderate in severity. The patient had imaging performed in the emergency department with chest, abdomen, and pelvis CT showing old rib fractures, but nothing acute, abdominal organs intact with no sign of acute injury, severe compression of T11 unchanged from prior scans, L1 compression unchanged from prior scan, compressions of L3 and L4 probably subacute in nature. She also had CT of brain, C-spine with no intracranial abnormalities acutely and straightening of the cervical spine without acute findings. The patient was medicated and pain controlled and C-spine cleared, but was noted on workup to have significant hyponatremia acute on chronic and acute renal insufficiency. This is suspected to be hypovolemic in nature, and the patient was admitted to the floor for IV fluids. She was administered normal saline and labs followed throughout the afternoon and evening. She at exam today complains of mild pain to the rib region, but otherwise is feeling better and is desired to go home. Her mental status she reports is normal. She is a long-term patient of [facility] and reports no recent changes in her medication regimen. She denies any contributing substances to the episode yesterday and her alcohol, Tylenol, salicylate, and urine drug screen were all negative. PAST MEDICAL HISTORY: 1. Partial complex seizures. 2. Diabetes. 3. Hypertension. 4. Unspecified renal disease. 5. COPD. 6. Asthma. 7. Anxiety. 8. Bipolar. 9. Depression. 10. Schizophrenia. PAST SURGICAL HISTORY: 1. Appendectomy. 2. Hysterectomy. 3. . 4. Another abdominal surgery. SOCIAL HISTORY: The patient drinks socially, but reports that she had drank prior to this episode and is a former drug user, but denies current use with history of cocaine, marijuana, and methamphetamine. She does smoke approximately 2 packs a day for approximately 30 years. ALLERGIES: NO KNOWN DRUG ALLERGIES. MEDICATIONS: 1. Quetiapine fumarate 200 mg b.i.d. 2. Invega 1.5 mL subcu per [facility]. 3. Lisinopril 20 mg daily. 4. Gabapentin 300 mg t.i.d. 5. Lexapro 10 mg daily. 6. Divalproex sodium 500 mg t.i.d. 7. Xanax 0.25 mg p.o. b.i.d. 8. Risperdal 3 mg p.o. b.i.d. REVIEW OF SYSTEMS: Ten-system review performed significant only for back and rib pain, but otherwise unremarkable. PHYSICAL EXAMINATION: VITAL SIGNS: At ED presentation, blood pressure 118/63, respirations 16, pulse 85, temperature 97.9, and O2 saturation 93% on room air. At my exam today, temperature 97.9, pulse 69, blood pressure 136/67, respirations 18, and O2 saturation 97% on room air. GENERAL: Well-developed, obese female, in no acute distress. Alert and oriented x3. Pupils equally round and reactive to light and accommodation, strabismus noted. Nares are patent without discharge. NECK: Supple without tenderness. HEART: Regular rate and rhythm. Normal S1 and S2. No murmurs, clicks, rubs, or gallops. LUNGS: Clear to auscultation bilaterally. No crackles or wheezes. ABDOMEN: Positive bowel sounds in all 4 quadrants. Soft, nontender, and nondistended. No masses, guarding, or rebound tenderness. Chest wall without ecchymosis noted. No subcutaneous emphysema or crepitus. EXTREMITIES: No cyanosis, clubbing, or edema. LABORATORY STUDIES: White count 8.1, hemoglobin 12.5, hematocrit 38.8, platelets 470. INR 1.1. Sodium on admission 129, potassium 3.4, chloride 96, bicarb 19, BUN 15, creatinine 1.8, glucose 78, calcium 8.9. AST 84, ALT 51. Repeat BMP today, sodium 132, potassium 3.1, chloride 101, bicarb 18, BUN 10, creatinine 1.09, glucose 125, calcium 8.3. Urine significant for trace blood, small bilirubin, small LE, 4 to 6 rbc's, 11 to 20 wbc's, squamous epithelial cells 7 to 10, and urine bacteria 3+. Toxicology as per HPI. Serology COVID-19 not detected. ASSESSMENT AND PLAN: 1. Hyponatremia. This is hypovolemic and the patient has been treated with IV fluids and sodium back to baseline. Also contributing to chronic hyponatremia is likely her medication regimen, may have drug interactions that might contribute to syndrome of inappropriate antidiuretic hormone secretion. Talked with her [facility] doctors about possible adjustment there. 2. Acute kidney injury. This is a prerenal secondary to hypovolemia. The patient was advised to continue appropriate fluid intake to avoid repeat episode. 3. Status post fall. This was likely related to the patient's dehydrated status and possibly hyponatremia. Anti-inflammatories can be taken [id number] going forward for pain control as well as acetaminophen. 4. Acute cystitis. Urine culture was not performed, but we will go ahead and treat with a course of Keflex at discharge. 5. Bipolar/schizophrenia. The patient will follow up with [facility] as directed. 6. Tobacco abuse. The patient is recommended smoking cessation. DISPOSITION: The patient was deemed improved and stable for discharge. She has been advised to follow up with her primary care provider in approximately 5 to 7 days and will need a repeat basic metabolic profile at that time. Job ID: [id number]
== END 2019-12-26 14:30 | disposition home or self-care (01) ==
LOC: BURERS 09:45 → BURMED 13:30
PROVIDERS: ADMIT Family Medicine; ATTEND Family Medicine
DX: E87.1 Hypo-osmolality and hyponatremia (principal); E86.1 Hypovolemia; N17.9 Acute kidney failure, unspecified; E86.0 Dehydration; N30.00 Acute cystitis without hematuria; F31.9 Bipolar disorder, unspecified; F20.9 Schizophrenia, unspecified; F17.210 Nicotine dependence, cigarettes, uncomplicated; M54.9 Dorsalgia, unspecified; R07.81 Pleurodynia; E11.9 Type 2 diabetes mellitus without complications; I10 Essential (primary) hypertension; J44.9 Chronic obstructive pulmonary disease, unspecified; F41.9 Anxiety disorder, unspecified; M51.36 Other intervertebral disc degeneration, lumbar region; M48.061 Spinal stenosis, lumbar region without neurogenic claudication; K80.20 Calculus of gallbladder without cholecystitis without obstruction; I70.0 Atherosclerosis of aorta; I25.10 Atherosclerotic heart disease of native coronary artery without angina pectoris; F14.11 Cocaine abuse, in remission; F12.11 Cannabis abuse, in remission; F15.11 Other stimulant abuse, in remission; Z79.899 Other long term (current) drug therapy; Z20.828 Contact with and (suspected) exposure to other viral communicable diseases; W19.XXXA Unspecified fall, initial encounter
CPT/HCPCS: 36415; 70450; 71250; 72125; 74177; 80048; 80053; 80306; 80307; 81003; 81015; 85025; 85610; 87635; 90471; 90732; 96361; 96374; 96376; G0009; G0378; J2270; J7050; U0003

== ENCOUNTER 2020-01-06 14:27 | Emergency (ER) | payer OTHER ==
[2020-01-06] MEDS ORDERED: Ketorolac Tromethamine 30 MG/ML VIAL ONE (14:45)
[2020-01-06] MEDS ORDERED: traMADol HCl 50 MG TAB ONE (14:45)
[2020-01-06 14:48] LABS: Bilirubin Negative (Negative); Blood, Urine Trace (Negative); Clarity Clear (Clear); Glucose, Urine (Dipstick) Negative (Negative); Ketone, Urine Negative (Negative); Leukocyte Trace (Negative); Nitrite Negative (Negative); Protein, Urine (Dipstick) Negative (Neg-Trace); Specific Gravity, Urine 1.015 (1.005-1.030); Urobilinogen 0.2 mg/dL (Less than 2); pH, Urine 6.5 (5.0-9.0)
[2020-01-06 14:51] LABS: Bacteria/HPF Rare-Few HPF (None Seen); Squamous Epithelial 0-3 HPF (0-3)
== END 2020-01-06 15:30 | disposition home or self-care (01) ==
LOC: BURERS 14:27
DX: G89.4 Chronic pain syndrome (principal); M54.5 Low back pain; E11.9 Type 2 diabetes mellitus without complications; I10 Essential (primary) hypertension; F41.9 Anxiety disorder, unspecified; F31.9 Bipolar disorder, unspecified; F17.210 Nicotine dependence, cigarettes, uncomplicated; F20.9 Schizophrenia, unspecified; J44.9 Chronic obstructive pulmonary disease, unspecified
CPT/HCPCS: 81003; 81015; 96372; 99283; J1885

== ENCOUNTER 2020-05-14 13:30 | Emergency (ER) | payer OTHER ==
[2020-05-14 14:28] LABS: Bilirubin Small (Negative); Blood, Urine Moderate (Negative); Glucose, Urine (Dipstick) Negative (Negative); Ketone, Urine Negative (Negative); Leukocyte Moderate (Negative); Nitrite Negative (Negative); Protein, Urine (Dipstick) > or equal to 300 mg/dL (Neg-Trace); Specific Gravity, Urine 1.015 (1.005-1.030); Urobilinogen 0.2 mg/dL (Less than 2); pH, Urine 5.5 (5.0-9.0)
[2020-05-14 14:40] LABS: ALT (SGPT) 20 U/L (8-55); AST (SGOT) 29 U/L (5-34); Albumin 3.8 g/dL (3.5-5.0); Alkaline Phosphatase 40 U/L (40-110); Anion Gap 18 mmol/L (10-20); BUN (Urea Nitrogen) 19 mg/dL (9.8-20.1); Bilirubin, Total 0.5 mg/dL (0.2-1.2); Calc. Creatinine Clearance 0 mL/min (70-130); Calcium 8.8 mg/dL (7.8-10.44); Carbon Dioxide 22 mmol/L (22-29); Chloride 89 mmol/L (98-107); Clarity Cloudy (Clear); Globulin 3.3 g/dL (2.4-3.5); Glucose 126 mg/dL (70-105); Potassium 4.2 mmol/L (3.5-5.1); Protein, Total 7.1 g/dL (6.0-8.3); Sodium 125 mmol/L (136-145)
[2020-05-14 14:41] LABS: Bacteria/HPF 2+ HPF (None Seen); Other Microscopic Description C&SS SET UP; WBC/HPF Greater Than 50 HPF (0-3)
[2020-05-14] MEDS ORDERED: Acetaminophen 500 MG TAB ONE (14:42)
[2020-05-14] MEDS ORDERED: Sodium Chloride 0.9% 100 ML ONE (14:42)
[2020-05-14] MEDS ORDERED: Cefepime 2 GM VIAL ONE (14:42)
[2020-05-14 14:48] LABS: Band 28 % (5-11); Hemoglobin 14.2 g/dL (12.0-16.0); Lymphocytes 6 % (21-51); MDiff Complete? YES; Mean Corpuscular HGB CONC 32.6 g/dL (32.0-36.0); Mean Corpuscular Hemoglobin 28.3 pg (27.0-31.0); Mean Platelet Volume 7.7 fL (7.4-10.4); Metamyelocyte 1 % (0-0); Monocytes 7 % (0-10); Neutrophil 58 % (42-75); Platelet Count 184 thou/uL (130-400); RBC Distribution Width 12.7 % (11.5-14.5); Red Blood Cell (RBC) Count 5.02 mill/uL (4.20-5.40); White Blood Cell (WBC) Count 20.6 thou/uL (4.8-10.8)
[2020-05-14 16:06] LABS: SARS-CoV-2 NAA Rapid Test Not Detected (NotDetected)
[2020-05-14] MEDS ORDERED: HYDROmorphone 0.5 MG/0.5 ML SYRINGE ONE (16:16)
[2020-05-14 17:10] LABS: Lactic Acid 1.3 mmol/L (0.5-2.2)
--- NOTE | 2020-05-14 17:46 | RAD ---
PORTABLE CHEST: 05/14/20 An AP portable film at 1522 is compared with the 01/27/20 study. The heart is normal in size and the lungs are clear. No lobar infiltrate, effusion, or vascular conge stion was seen. IMPRESSION: No acute finding. POS: HOME
--- NOTE | 2020-05-14 18:04 | CT ---
CT OF THE ABDOMEN AND PELVIS WITHOUT CONTRAST: 05/14/20 Comparison is made with prior study of 01/27/20. The lung bases are clear with no acute infiltrate or effusion seen. Small calcified granuloma is seen in the left lower lobe posteriorly. The liver seems somewhat larger today than it was on the prior e xam. The spleen and pancreas are unremarkable in size and shape within the limitations of a noncontr ast study. A calcification of watters of parts of the gallbladder raises the question of porcelain gall bladder as before. The kidneys show streaking around them that was really not present on the prior ex am. Pyelonephritis should be considered. There is a vague lucency in the middle to upper third of the left kidney. Looking at the prior scan, there is probably a cyst here. This scan cannot resolve this any further. There is no hydronephrosis. No renal calculi are seen. Dense arteriosclerosis is seen i n the aorta with nearly complete occlusion of the lumen of the lower abdominal aorta just above the b ifurcation. This is not a new finding either. No free air, free fluid was seen. There is a moderate a mount of fecal material in the colon, but no distended bowel was evident. CT of the pelvis shows no pelvic masses, adenopathy, or other similar acute changes. There is probabl y a small amount of fluid in the cul-de-sac. The patient has multiple compression fractures of the spine, a known problem for her. There is a urbano re compression of T11 with some retropulsion of this vertebra. The appearance is very similar to the prior study. Moderate compressions of L1, L3 and L4 are noted as usual. Overall, none of these compre ssions seem much different than previously. Multilevel degenerative disc disease is present as well. IMPRESSION: 1. Interval appearance of streaking around the kidneys. Pyelonephritis should be considered. 2. Hepatic size seems larger today than before. This is a relatively short interval for that to occur. Noting that there is a very small amount of fluid in the cul-de-sac, I would wonder about the patient's fluid status and the possibility of any passive congestion as well. A check of hepatic func tion might be instructive. 3. 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 4. Multiple vertebral compressions with little change since the last exam. Preliminary report discussed with Dr. Ly at 1535. He reported that urosepsis based on lab work see ms to be at play here. POS: HOME
== END 2020-05-14 19:15 | disposition short-term general hospital (02) ==
LOC: BURERS 13:30
DX: A41.9 Sepsis, unspecified organism (principal); N39.0 Urinary tract infection, site not specified; E11.9 Type 2 diabetes mellitus without complications; J44.9 Chronic obstructive pulmonary disease, unspecified; I10 Essential (primary) hypertension; J45.909 Unspecified asthma, uncomplicated; F17.210 Nicotine dependence, cigarettes, uncomplicated
CPT/HCPCS: 0240U; 36415; 71045; 74176; 80053; 81003; 81015; 83605; 83880; 84484; 85025; 87040; 87077; 87086; 87149; 87186; 93005; 96365; 96374; J0692; J1170; J3490

== ENCOUNTER 2020-08-16 17:10 | Emergency (ER) | payer OTHER ==
[2020-08-16 19:25] LABS: Bilirubin Negative (Negative); Blood, Urine Negative (Negative); Clarity Clear (Clear); Glucose, Urine (Dipstick) Negative (Negative); Ketone, Urine Negative (Negative); Leukocyte Negative (Negative); Nitrite Negative (Negative); Protein, Urine (Dipstick) Negative (Neg-Trace); Specific Gravity, Urine 1.015 (1.005-1.030); Urobilinogen 0.2 mg/dL (Less than 2)
[2020-08-16] MEDS ORDERED: Acetaminophen 500 MG TAB ONE (19:47)
== END 2020-08-16 19:50 | disposition home or self-care (01) ==
LOC: BURERS 17:10
DX: S30.0XXA Contusion of lower back and pelvis, initial encounter (principal); E11.9 Type 2 diabetes mellitus without complications; I10 Essential (primary) hypertension; J44.9 Chronic obstructive pulmonary disease, unspecified; F17.210 Nicotine dependence, cigarettes, uncomplicated; W17.89XA Other fall from one level to another, initial encounter
CPT/HCPCS: 72100; 81003

== ENCOUNTER 2020-09-24 05:51 | Emergency (ER) | payer OTHER ==
[2020-09-24 06:25] LABS: #Basophils 0.1 thou/uL (0.0-0.2); #Eosinphils 0.2 thou/uL (0.0-0.7); #Lymphocytes 2.9 thou/uL (1.20-3.40); #Monocytes 0.5 thou/uL (0.11-0.59); #Neutrophils 3.3 thou/uL (1.40-6.50); %Basophils 1.2 % (0.0-1.0); %Eosinophils 2.4 % (0.0-10.0); %Lymphocytes 41.7 % (21.0-51.0); %Monocytes 7.6 % (0.0-10.0); %Neutrophils 47.1 % (42.0-75.0); Hemoglobin 14.1 g/dL (12.0-16.0); Mean Corpuscular HGB CONC 33.6 g/dL (32.0-36.0); Mean Corpuscular Hemoglobin 28.7 pg (27.0-31.0); Mean Corpuscular Volume 85.4 fL (78.0-98.0); Platelet Count 219 thou/uL (130-400); RBC Distribution Width 13.2 % (11.5-14.5); Red Blood Cell (RBC) Count 4.91 mill/uL (4.20-5.40); White Blood Cell (WBC) Count 6.9 thou/uL (4.8-10.8)
[2020-09-24 06:41] LABS: ALT (SGPT) 9 U/L (8-55); AST (SGOT) 11 U/L (5-34); Albumin 3.7 g/dL (3.5-5.0); Alkaline Phosphatase 55 U/L (40-110); Anion Gap 15 mmol/L (10-20); BUN (Urea Nitrogen) 15 mg/dL (9.8-20.1); Bilirubin, Total Less than 0.2 mg/dL (0.2-1.2); Calc. Creatinine Clearance 0 mL/min (70-130); Calcium 8.8 mg/dL (7.8-10.44); Carbon Dioxide 27 mmol/L (22-29); Chloride 96 mmol/L (98-107); Globulin 2.7 g/dL (2.4-3.5); Glucose 87 mg/dL (70-105); Lipase 44 U/L (8-78); Potassium 4.8 mmol/L (3.5-5.1); Protein, Total 6.4 g/dL (6.0-8.3); Sodium 133 mmol/L (136-145)
[2020-09-24] MEDS ORDERED: Acetaminophen 500 MG TAB ONE (06:47)
[2020-09-24 07:00] LABS: Bilirubin Negative (Negative); Blood, Urine Trace (Negative); Clarity Turbid (Clear); Glucose, Urine (Dipstick) Negative (Negative); Ketone, Urine Negative (Negative); Leukocyte Large (Negative); Nitrite Positive (Negative); Protein, Urine (Dipstick) Negative (Neg-Trace); Urobilinogen 0.2 mg/dL (Less than 2); pH, Urine 6.5 (5.0-9.0)
[2020-09-24 07:10] LABS: Bacteria/HPF 3+ HPF (None Seen); RBC/HPF 0-3 HPF (0-3); Squamous Epithelial 0-3 HPF (0-3); WBC/HPF 21-50 HPF (0-3)
[2020-09-24] MEDS ORDERED: Sodium Chloride 0.9% 100 ML ONE (07:34)
[2020-09-24] MEDS ORDERED: Ketorolac Tromethamine 30 MG/ML VIAL ONE (07:34)
[2020-09-24] MEDS ORDERED: Phenazopyridine HCl 97.5 MG TABLET ONE ×2 (07:34→07:38)
[2020-09-24] MEDS ORDERED: cefTRIAXone\\ROCEPHIN 1 GM VIAL ONE (07:34)
== END 2020-09-24 16:23 | disposition home or self-care (01) ==
LOC: BURERS 05:51
DX: N39.0 Urinary tract infection, site not specified (principal); Z79.899 Other long term (current) drug therapy; E11.9 Type 2 diabetes mellitus without complications; I10 Essential (primary) hypertension; J44.9 Chronic obstructive pulmonary disease, unspecified; F17.210 Nicotine dependence, cigarettes, uncomplicated
CPT/HCPCS: 36415; 80053; 81003; 81015; 83690; 85025; 93005; 96365; 96375; J0696; J1885; J3490

== ENCOUNTER 2020-10-14 12:58 | Emergency (ER) | payer OTHER | END 2020-10-14 13:28 | disposition home or self-care (01) | LOC: BURERS 12:58 | DX: I10 Essential (primary) hypertension (principal); E11.9 Type 2 diabetes mellitus without complications; J44.9 Chronic obstructive pulmonary disease, unspecified; F17.210 Nicotine dependence, cigarettes, uncomplicated; Z79.899 Other long term (current) drug therapy | CPT/HCPCS: 99283 ==

== ENCOUNTER 2020-11-21 01:24 | Emergency (ER) | payer OTHER ==
[2020-11-21 02:42] LABS: Bilirubin Negative (Negative); Blood, Urine Trace (Negative); Clarity Cloudy (Clear); Glucose, Urine (Dipstick) Negative (Negative); Ketone, Urine Negative (Negative); Leukocyte Large (Negative); Nitrite Positive (Negative); Protein, Urine (Dipstick) Negative (Neg-Trace); Specific Gravity, Urine 1.015 (1.005-1.030); Urobilinogen 0.2 mg/dL (Less than 2); pH, Urine 5.5 (5.0-9.0)
[2020-11-21 02:44] LABS: Bacteria/HPF 3+ HPF (None Seen); RBC/HPF 0-3 HPF (0-3); Squamous Epithelial 0-3 HPF (0-3); Transitional Epithelial 0-3 HPF (None Seen); WBC/HPF Greater Than 50 HPF (0-3)
[2020-11-21] MEDS ORDERED: methylPREDNISolone Sod Succ/PF 125 MG/2 ML VIAL ONE (03:09)
[2020-11-21] MEDS ORDERED: Ketorolac Tromethamine 30 MG/ML VIAL ONE (03:09)
[2020-11-21] MEDS ORDERED: cefTRIAXone\\ROCEPHIN 1 GM VIAL ONE (03:58)
[2020-11-21] MEDS ORDERED: Sterile Water 10 ML ONE (03:58)
== END 2020-11-21 04:30 | disposition home or self-care (01) ==
LOC: BURERS 01:24
DX: N39.0 Urinary tract infection, site not specified (principal); M25.551 Pain in right hip; M54.5 Low back pain; G89.29 Other chronic pain; E11.9 Type 2 diabetes mellitus without complications; I10 Essential (primary) hypertension; J44.9 Chronic obstructive pulmonary disease, unspecified; F17.210 Nicotine dependence, cigarettes, uncomplicated; Z79.899 Other long term (current) drug therapy
CPT/HCPCS: 72100; 81003; 81015; 96372; 96374; 96375; J0696; J1885; J2930

== ENCOUNTER 2020-12-08 20:04 | Observation (INO) | payer OTHER ==
[2020-12-08] MEDS ORDERED: Ondansetron PF 4 MG/2 ML Vial ONE (20:31)
[2020-12-08] MEDS ORDERED: Pantoprazole 40 MG VIAL ONE (20:31)
[2020-12-08 20:41] LABS: #Basophils 0.2 thou/uL (0.0-0.2); #Eosinphils 0.1 thou/uL (0.0-0.7); #Lymphocytes 3.4 thou/uL (1.20-3.40); #Monocytes 1.1 thou/uL (0.11-0.59); #Neutrophils 10.4 thou/uL (1.40-6.50); %Basophils 1.5 % (0.0-1.0); %Eosinophils 0.5 % (0.0-10.0); %Lymphocytes 22.6 % (21.0-51.0); %Monocytes 7.3 % (0.0-10.0); %Neutrophils 68.2 % (42.0-75.0); Hemoglobin 14.4 g/dL (12.0-16.0); Mean Corpuscular HGB CONC 33.4 g/dL (32.0-36.0); Platelet Count 245 thou/uL (130-400); RBC Distribution Width 14.7 % (11.5-14.5); Red Blood Cell (RBC) Count 4.97 mill/uL (4.20-5.40); White Blood Cell (WBC) Count 15.2 thou/uL (4.8-10.8)
[2020-12-08 20:49] LABS: ALT (SGPT) 11 U/L (8-55); AST (SGOT) 11 U/L (5-34); Alkaline Phosphatase 46 U/L (40-110); Anion Gap 20 mmol/L (10-20); BUN (Urea Nitrogen) 26 mg/dL (9.8-20.1); Bilirubin, Total 0.4 mg/dL (0.2-1.2); Calc. Creatinine Clearance 0 mL/min (70-130); Calcium 9.3 mg/dL (7.8-10.44); Carbon Dioxide 23 mmol/L (22-29); Chloride 95 mmol/L (98-107); Globulin 3.1 g/dL (2.4-3.5); Glucose 102 mg/dL (70-105); Lipase 56 U/L (8-78); Potassium 5.3 mmol/L (3.5-5.1); Protein, Total 7.1 g/dL (6.0-8.3); Sodium 133 mmol/L (136-145)
[2020-12-08 21:32] LABS: Bilirubin Small (Negative); Blood, Urine Small (Negative); Clarity Turbid (Clear); Glucose, Urine (Dipstick) Negative (Negative); Ketone, Urine Trace mg/dL (Negative); Leukocyte Trace (Negative); Nitrite Negative (Negative); Protein, Urine (Dipstick) 100 mg/dL (Neg-Trace); Specific Gravity, Urine 1.015 (1.005-1.030); Urobilinogen 0.2 mg/dL (Less than 2); pH, Urine 5.5 (5.0-9.0)
[2020-12-08 21:37] LABS: Bacteria/HPF 1+ HPF (None Seen); RBC/HPF None Seen HPF (0-3); Renal Epithelial 0-3 HPF (None Seen); Squamous Epithelial 0-3 HPF (0-3); Transitional Epithelial 0-3 HPF (None Seen); WBC/HPF 0-3 HPF (0-3)
[2020-12-08 21:39] LABS: Calcium Oxalate Crystals Rare HPF (None Seen)
[2020-12-08 22:44] LABS: SARS-CoV-2 NAA Rapid Test Not Detected (NotDetected)
[2020-12-08 22:52] VITALS: BMI 48.6
[2020-12-08] MEDS ORDERED: Sodium Chloride 0.9% (PF) 10 ML VIAL FS PRN (23:45)
[2020-12-08] MEDS ORDERED: Acetaminophen 325 MG TAB PO PRN (23:45)
[2020-12-08] MEDS ORDERED: Ondansetron ODT 4 MG TAB SL PRN (23:45)
[2020-12-08] MEDS ORDERED: Ondansetron PF 4 MG/2 ML Vial IVP PRN (23:45)
[2020-12-09] MEDS ORDERED: Cyclobenzaprine 10 MG TAB PO PRN ×2 (00:07→06:12)
[2020-12-09] MEDS ORDERED: HYDROcodone/Acetaminophen 10/325 mg Tablet PO PRN ×2 (00:09→06:12)
[2020-12-09] MEDS ORDERED: Albuterol Sulfate 2.5 mg/3 ml Neb NEB PRN (00:11)
[2020-12-09] MEDS: Sodium Chloride 0.9% 1,000 ML IV SCH ×2 (00:31→09:01)
[2020-12-09] MEDS ORDERED: Albuterol Sulfate 1.25 MG/3 ML NEB NEB PRN (06:25)
[2020-12-09 07:02] LABS: #Basophils 0.1 thou/uL (0.0-0.2); #Eosinphils 0.1 thou/uL (0.0-0.7); #Lymphocytes 3.6 thou/uL (1.20-3.40); %Basophils 1.3 % (0.0-1.0); %Eosinophils 1.2 % (0.0-10.0); %Lymphocytes 30.2 % (21.0-51.0); %Monocytes 8.3 % (0.0-10.0); Mean Corpuscular HGB CONC 32.3 g/dL (32.0-36.0); Mean Corpuscular Hemoglobin 28.4 pg (27.0-31.0); Mean Corpuscular Volume 87.9 fL (78.0-98.0); Mean Platelet Volume 6.9 fL (7.4-10.4); Platelet Count 210 thou/uL (130-400); Red Blood Cell (RBC) Count 4.56 mill/uL (4.20-5.40); White Blood Cell (WBC) Count 11.9 thou/uL (4.8-10.8)
[2020-12-09 07:10] LABS: ALT (SGPT) 11 U/L (8-55); AST (SGOT) 12 U/L (5-34); Albumin 3.5 g/dL (3.5-5.0); Alkaline Phosphatase 46 U/L (40-110); Anion Gap 16 mmol/L (10-20); BUN (Urea Nitrogen) 27 mg/dL (9.8-20.1); Bilirubin, Total 0.4 mg/dL (0.2-1.2); Calc. Creatinine Clearance 70 mL/min (70-130); Calcium 8.6 mg/dL (7.8-10.44); Carbon Dioxide 21 mmol/L (22-29); Chloride 100 mmol/L (98-107); Globulin 2.7 g/dL (2.4-3.5); Glucose 89 mg/dL (70-105); Potassium 4.7 mmol/L (3.5-5.1); Protein, Total 6.2 g/dL (6.0-8.3); Sodium 132 mmol/L (136-145)
[2020-12-09] MEDS ORDERED: predniSONE 20 MG TAB PO SCH ×2 (08:00)
[2020-12-09] MEDS ORDERED: Gabapentin 300 MG CAP PO SCH (09:00)
[2020-12-09] MEDS ORDERED: Escitalopram Oxalate 20 mg Tablet PO SCH ×2 (09:00)
[2020-12-09] MEDS ORDERED: Saccharomyces boulardii 250 MG CAP PO SCH (09:00)
[2020-12-09] MEDS ORDERED: Cephalexin 250 MG CAP PO SCH ×2 (09:00)
[2020-12-09] MEDS ORDERED: Lisinopril 20 MG TAB PO SCH ×2 (09:00)
[2020-12-09] MEDS ORDERED: Pantoprazole 40 MG VIAL IVP SCH (09:00)
[2020-12-09] MEDS ORDERED: ALPRAZolam 0.5 MG TAB PO SCH ×2 (09:00)
[2020-12-09] MEDS: Gabapentin 300 MG CAP PO SCH ×2 (09:04→16:14)
[2020-12-09 12:26] VITALS: BP 168/72; TEMP 97.8
== END 2020-12-09 16:55 | disposition home or self-care (01) ==
LOC: BURERS 20:04 → BURMED 21:45
PROVIDERS: ADMIT Family Medicine; ATTEND Family Medicine
DX: N17.9 Acute kidney failure, unspecified (principal); E86.0 Dehydration; E87.5 Hyperkalemia; R11.10 Vomiting, unspecified; E11.9 Type 2 diabetes mellitus without complications; I10 Essential (primary) hypertension; J44.9 Chronic obstructive pulmonary disease, unspecified; F17.210 Nicotine dependence, cigarettes, uncomplicated; Z79.899 Other long term (current) drug therapy; Z20.822 Contact with and (suspected) exposure to COVID-19
CPT/HCPCS: 0240U; 36415; 74177; 80053; 81003; 81015; 83690; 84484; 85025; 93005; 96374; 96375; 96376; C9113; G0378; J2405; J7512

== ENCOUNTER 2021-05-09 17:34 | Emergency (ER) | payer OTHER ==
[2021-05-09] MEDS ORDERED: Acetaminophen 500 MG TAB ONE (17:55)
== END 2021-05-09 18:03 | disposition home or self-care (01) ==
LOC: BURERS 17:34
DX: S80.01XA Contusion of right knee, initial encounter (principal); S30.0XXA Contusion of lower back and pelvis, initial encounter; E11.9 Type 2 diabetes mellitus without complications; I10 Essential (primary) hypertension; F17.210 Nicotine dependence, cigarettes, uncomplicated; J44.9 Chronic obstructive pulmonary disease, unspecified; Y04.0XXA Assault by unarmed brawl or fight, initial encounter
CPT/HCPCS: 99283

== ENCOUNTER 2021-05-12 16:17 | Emergency (ER) | payer OTHER ==
[2021-05-12 16:49] LABS: #Basophils 0.2 thou/uL (0.0-0.2); #Eosinphils 0.1 thou/uL (0.0-0.7); #Lymphocytes 3.5 thou/uL (1.20-3.40); #Monocytes 0.7 thou/uL (0.11-0.59); #Neutrophils 10.1 thou/uL (1.40-6.50); %Basophils 1.4 % (0.0-1.0); %Eosinophils 0.4 % (0.0-10.0); %Lymphocytes 24.3 % (21.0-51.0); %Neutrophils 68.9 % (42.0-75.0); Hemoglobin 13.9 g/dL (12.0-16.0); Mean Corpuscular HGB CONC 33.9 g/dL (32.0-36.0); Mean Corpuscular Hemoglobin 28.9 pg (27.0-31.0); Mean Corpuscular Volume 85.4 fL (78.0-98.0); Mean Platelet Volume 7.3 fL (7.4-10.4); Platelet Count 416 thou/uL (130-400); RBC Distribution Width 12.2 % (11.5-14.5); Red Blood Cell (RBC) Count 4.79 mill/uL (4.20-5.40); White Blood Cell (WBC) Count 14.6 thou/uL (4.8-10.8)
[2021-05-12 17:08] LABS: ALT (SGPT) 12 U/L (8-55); AST (SGOT) 30 U/L (5-34); Acetaminophen Less than 6.0 mcg/mL (10.0-30.0); Albumin 4.2 g/dL (3.5-5.0); Alcohol Less than 10 mg/dL (Less than 10); Alkaline Phosphatase 71 U/L (40-110); Anion Gap 16 mmol/L (10-20); BUN (Urea Nitrogen) 6 mg/dL (9.8-20.1); Bilirubin, Total 0.6 mg/dL (0.2-1.2); Calc. Creatinine Clearance 0 mL/min (70-130); Calcium 10.2 mg/dL (7.8-10.44); Carbon Dioxide 23 mmol/L (22-29); Chloride 90 mmol/L (98-107); Globulin 3.2 g/dL (2.4-3.5); Glucose 99 mg/dL (70-105); Potassium 4.1 mmol/L (3.5-5.1); Protein, Total 7.4 g/dL (6.0-8.3); Salicylate Less than 8.0 mg/dL (15.0-30.0); Sodium 125 mmol/L (136-145)
[2021-05-12 17:26] LABS: Bilirubin Negative (Negative); Blood, Urine Negative (Negative); Clarity Cloudy (Clear); Glucose, Urine (Dipstick) Negative (Negative); Ketone, Urine Negative (Negative); Leukocyte Trace (Negative); Nitrite Negative (Negative); Protein, Urine (Dipstick) Negative (Neg-Trace); Urobilinogen 0.2 mg/dL (Less than 2)
[2021-05-12 17:27] LABS: Specific Gravity, Urine 1.004 (1.002-1.036)
[2021-05-12 17:34] LABS: Bacteria/HPF 3+ HPF (None Seen); RBC/HPF 0-3 HPF (0-3)
[2021-05-12 17:41] LABS: CKMB 10.6 ng/mL (0-6.6)
[2021-05-12 17:42] LABS: Amphetamine Not Detected (NotDetected); Barbiturates Screen Not Detected (NotDetected); Benzodiazepine Screen Not Detected (NotDetected); Cocaine Metabolite Screen Not Detected (NotDetected); Medtox Control Line Valid? VALID (VALID); Methadone Not Detected (NotDetected); Methamphetamine Not Detected (NotDetected); Opiate Screen Not Detected (NotDetected); Oxycodone Screen Not Detected (NotDetected); Phencyclidine (PCP) Not Detected (NotDetected); THC/Cannabinoid Screen Not Detected (NotDetected); Tricyclic Screen Not Detected (NotDetected)
[2021-05-12] MEDS ORDERED: cefTRIAXone\\ROCEPHIN 2 GM VIAL ONE (18:18)
== END 2021-05-12 22:45 | disposition short-term general hospital (02) ==
LOC: BURERS 16:17
DX: I24.9 Acute ischemic heart disease, unspecified (principal); N39.0 Urinary tract infection, site not specified; R41.82 Altered mental status, unspecified; R00.0 Tachycardia, unspecified; K00.7 Teething syndrome; E11.9 Type 2 diabetes mellitus without complications; I10 Essential (primary) hypertension; J44.9 Chronic obstructive pulmonary disease, unspecified; F17.210 Nicotine dependence, cigarettes, uncomplicated
CPT/HCPCS: 36415; 71045; 80053; 80306; 80307; 81003; 81015; 82553; 83605; 84443; 84484; 85025; 87040; 87086; 87149; 93005; 94760; 96365; J0696